=== PATIENT | female | born 1935 | race Caucasian/White ===

== ENCOUNTER 2017-04-18 12:53 | Day surgery (SDC) | payer OTHER ==
[~2017-04-18] VITALS: Ht 167.6 cm; Wt 73.0 kg
[~2017-04-18 12:53] MED LIST: ASPI-496 PO; ATEN1TAB4 PO; CEPH-367 PO; CLIN300C3 PO; DEXAMETHASONE 4 MG/ML, 1ML ONE; ENAL5TAB PO; EPHEDRINE 50 MG/ML, 1ML ONE; FISH1CAP PO; GLYCOPYRROLATE 0.2MG/1ML ONE; LACT1CAP4 PO; LUTE20TA PO; MIRA50TA PO; MULT-717 PO; NAPR220C2 PO; PROPOFOL 10 MG/ML, 20ML ONE
[2017-04-18 13:39] VITALS: BP 185/96
[2017-04-18] MEDS ORDERED: LACTATED RINGERS 1,000 ML IV SCH (13:43)
[2017-04-18] MEDS ORDERED: SULF1TAB24 PO (13:58)
[2017-04-18] MEDS ORDERED: NITR100C56 PO (13:58)
[2017-04-18] MEDS ORDERED: SOLI5TAB PO (13:58)
[2017-04-18] MEDS ORDERED: ENAL5TAB PO (13:58)
[2017-04-18] MEDS ORDERED: ATOR10TA9 PO (13:58)
[2017-04-18] MEDS ORDERED: PLEASE ENTER HEIGHT AND WEIGHT MC SCH (14:00)
[2017-04-18] MEDS ORDERED: CEFU250T66 PO (14:31)
[2017-04-18] MEDS ORDERED: UBID100C24 PO (14:37)
[2017-04-18] MEDS ORDERED: BETA2500 PO (14:37)
[2017-04-18] MEDS ORDERED: VIT1TABL32 PO (14:37)
[2017-04-18] MEDS ORDERED: ACET-1600 PO (14:37)
[2017-04-18] MEDS ORDERED: FENTANYL PF 100 MCG/2ML ONE (14:49)
[2017-04-18 15:46] LABS: BLOOD UREA NITROGEN 31 mg/dL (7-18)
[2017-04-18 15:50] LABS: ASPARTATE AMINO TRANSFERASE 24 U/L (15-37)
[2017-04-18] MEDS ORDERED: CIPROFLOXACIN/PMX 400MG/200ML 0 ML ONE (16:03)
[2017-04-18] MEDS ORDERED: CEFTRIAXONE 1,000 MG ONE (16:21)
[2017-04-18] MEDS ORDERED: HYDROmorphone 1 MG/ML, 1ML IV PRN (16:30)
[2017-04-18] MEDS ORDERED: PROMETHAZINE 25 MG/ML, 1ML IV PRN (16:30)
[2017-04-18] MEDS ORDERED: MEPERIDINE/PF 25MG/0.5ML IVPush PRN (16:30)
[2017-04-18] MEDS ORDERED: hydrALAzine 20 MG/ML, 1ML IV PRN (16:30)
[2017-04-18] MEDS ORDERED: ONDANSETRON 2MG/ML, 2ML IVPush PRN (16:30)
[2017-04-18] MEDS ORDERED: FENTANYL PF 100 MCG/2ML IV PRN (16:30)
[2017-04-18] MEDS ORDERED: KETOROLAC 30 MG/1 ML IV PRN (16:30)
[2017-04-18] MEDS ORDERED: ACETAMINOPHEN 325 MG TABLET PO PRN (16:30)
[2017-04-18] MEDS ORDERED: LABETALOL 5MG/ML, 20ML IV PRN (16:30)
[2017-04-18] MEDS ORDERED: OXYcodone 5 MG/5 ML ORAL.SOL UDC PO PRN (16:30)
[2017-04-18] MEDS ORDERED: OMNIPAQUE 350 MG/ML, 50 ML BOTTLE IV ONE (16:35)
[2017-04-18] MEDS ORDERED: KETOROLAC 30 MG/1 ML ONE (17:42)
[2017-04-18] MEDS ORDERED: OXYcodone 5 MG/5 ML ORAL.SOL UDC ONE (17:44)
[2017-04-18] MEDS ORDERED: ACETAMINOPHEN 650 MG/20.3 ML UDC ONE (17:44)
== END 2017-04-18 23:00 | disposition home or self-care (01) ==
LOC: OUT 12:53
PROVIDERS: ATTEND Urology
DX: N30.30 Trigonitis without hematuria (principal); I10 Essential (primary) hypertension; N32.81 Overactive bladder; Z88.3 Allergy status to other anti-infective agents; Z72.89 Other problems related to lifestyle; E78.00 Pure hypercholesterolemia, unspecified; M19.90 Unspecified osteoarthritis, unspecified site; Z87.440 Personal history of urinary (tract) infections; N17.9 Acute kidney failure, unspecified; N20.0 Calculus of kidney; Z82.3 Family history of stroke; Z80.3 Family history of malignant neoplasm of breast
CPT/HCPCS: 36415; 52005; 52204; 74420; 80053; 88305; 93005; J0696; J1100; J1885; J2704; J3010; Q9967; J0744; J3490

== ENCOUNTER 2018-01-16 10:56 | Inpatient (IN) | payer OTHER ==
[~2018-01-16] VITALS: Ht 165.1 cm; Wt 77.0 kg
[~2018-01-16 10:56] MED LIST changes: +ACET-1600 PO; +ATOR10TA9 PO; +BETA2500 PO; +CEFU250T66 PO; -DEXAMETHASONE 4 MG/ML, 1ML ONE; -EPHEDRINE 50 MG/ML, 1ML ONE; -GLYCOPYRROLATE 0.2MG/1ML ONE; +NITR100C56 PO; -PROPOFOL 10 MG/ML, 20ML ONE; +SOLI5TAB2 PO; +SULF1TAB24 PO; +UBID100C24 PO; +VIT1TABL32 PO
[2018-01-16] MEDS ORDERED: SODIUM CHLORIDE 0.9% 1,000 ML IV ONE (11:18)
[2018-01-16] MEDS ORDERED: SODIUM CHLORIDE FLUSH 10ML SYR IVF ONE (11:30)
[2018-01-16 11:46] LABS: MEAN CORPUSCULAR HEMOGLOBIN 31.2 pg (27.0-34.8); MEAN CORPUSCULAR HGB CONC 33.1 g/dL (32.4-35.8); MEAN CORPUSCULAR VOLUME 94.4 fL (80-100); MEAN PLATELET VOLUME 7.6 fL (7.4-10.4); PLATELET COUNT 239 x10^3/uL (130-400); RED CELL DISTRIBUTION WIDTH 15.6 % (9.6-15.2)
[2018-01-16 11:50] LABS: INTERNATIONAL NORMALIZED RATIO 1.06 (0.93-1.1)
[2018-01-16 11:55] LABS: ALBUMIN 2.8 g/dL (3.4-5.0); ANION GAP 8 mmol/L (5-15); CALCIUM 8.5 mg/dL (8.5-10.1); CHLORIDE 103 mmol/L (98-107); CREATININE 2.34 mg/dL (0.55-1.02)
[2018-01-16 11:59] LABS: TROPONIN I < 0.015 ng/mL (0.000-0.045)
[2018-01-16] MEDS ORDERED: PLEASE ENTER HEIGHT AND WEIGHT MC SCH (12:00)
[2018-01-16 12:13] LABS: MD YES
[2018-01-16 12:20] LABS: <PLATELET ESTIMATE> ADEQUATE; <PLT MORPHOLOGY> NORMAL PLT MORPH; <RBC MORPHOLOGY> NORMAL; BANDS%(MANUAL) 10 % (0-7); LYMPH#(MANUAL) 1.02 x10^3/uL (1-3.4); LYMPHS% (MANUAL) 6 % (22-44); MONOS#(MANUAL) 0.68 x10^3/uL (0.3-2.7); MONOS% (MANUAL) 4 % (2-9); SEGS% (MANUAL) 80 % (42-75)
[2018-01-16] MEDS ORDERED: GABA100C PO (13:02)
[2018-01-16] MEDS ORDERED: KRIL1CAP22 PO (13:03)
[2018-01-16 13:34] LABS: MICROSCOPIC INDICATED
[2018-01-16 13:38] LABS: CULTURE INDICATED? YES
[2018-01-16] MEDS ORDERED: CEFTRIAXONE PMX 1GM/50ML 50 ML IV ONE (14:00)
[2018-01-16] MEDS ORDERED: CEFTRIAXONE PMX 1GM/50ML 50 ML ONE (14:47)
[2018-01-16] MEDS ORDERED: ACETAMINOPHEN 325 MG TABLET PO PRN (16:30)
[2018-01-16] MEDS ORDERED: LABETALOL 5MG/ML, 20ML IVPush PRN (16:30)
[2018-01-16 17:30] VITALS: BP 105/47
[2018-01-16] MEDS ORDERED: HYDROmorphone 1 MG/ML, 1ML IV PRN (18:00)
[2018-01-16] MEDS ORDERED: ONDANSETRON 2MG/ML, 2ML IVPush PRN (18:00)
[2018-01-16] MEDS ORDERED: LABETALOL 5MG/ML, 20ML IV PRN (18:00)
[2018-01-16] MEDS ORDERED: hydrALAzine 20 MG/ML, 1ML IV PRN (18:00)
[2018-01-16] MEDS ORDERED: FENTANYL PF 100 MCG/2ML IV PRN (18:00)
[2018-01-16] MEDS ORDERED: OXYcodone 5 MG/5 ML ORAL.SOL UDC PO PRN (18:00)
[2018-01-16] MEDS ORDERED: PROMETHAZINE 25 MG/ML, 1ML IV PRN (18:00)
[2018-01-16] MEDS ORDERED: MEPERIDINE/PF 25MG/0.5ML IVPush PRN (18:00)
[2018-01-16] MEDS ORDERED: PROMETHAZINE 12.5 MG SUPP PR PRN (18:00)
[2018-01-16] MEDS ORDERED: FENTANYL PF 250 MCG/5ML ONE (18:02)
[2018-01-16] MEDS ORDERED: PROPOFOL 10 MG/ML, 20ML ONE (18:02)
[2018-01-16] MEDS ORDERED: DEXAMETHASONE 4 MG/ML, 1ML ONE ×2 (18:03)
[2018-01-16] MEDS ORDERED: ONDANSETRON 2MG/ML, 2ML ONE (18:57)
[2018-01-16] MEDS ORDERED: PHENYLEPHRINE 10 MG/ML ONE (18:57)
[2018-01-16 20:43] VITALS: BP 140/84
[2018-01-16] MEDS: GABAPENTIN 100 MG CAPSULE PO SCH (21:00)
[2018-01-16 23:59] VITALS: BP 85/42
[2018-01-17] MEDS: SODIUM CHLORIDE 0.9% 1,000 ML IV SCH ×3 (00:26→23:56)
[2018-01-17 04:22] VITALS: BP 94/45
[2018-01-17] MEDS ORDERED: SODIUM CHLORIDE 0.9%, 500ML IVBOLUS ONE ×2 (05:00→11:00)
[2018-01-17 05:21] LABS: ANION GAP 7 mmol/L (5-15); CHLORIDE 106 mmol/L (98-107); CREATININE 2.61 mg/dL (0.55-1.02)
[2018-01-17 05:50] LABS: BASOPHILS % (AUTO) 0 % (0-1); EOSINOPHILS % (AUTO) 0 % (1-7); LYMPHOCYTES # (AUTO) 0.62 x10^3/uL (1-3.4); LYMPHOCYTES % (AUTO) 4 % (22-44); MD NO; MEAN CORPUSCULAR HEMOGLOBIN 31.5 pg (27.0-34.8); MEAN CORPUSCULAR HGB CONC 33.3 g/dL (32.4-35.8); MEAN CORPUSCULAR VOLUME 94.6 fL (80-100); MEAN PLATELET VOLUME 8.3 fL (7.4-10.4); MONOCYTES # (AUTO) 0.42 x10^3/uL (0.2-0.8); MONOCYTES % (AUTO) 3 % (2-9); NEUTROPHILS # (AUTO) 16.01 x10^3/uL (1.8-6.8); NEUTROPHILS % (AUTO) 94 % (42-75); PLATELET COUNT 191 x10^3/uL (130-400); RED BLOOD COUNT 2.66 x10^6/uL (3.82-5.3); RED CELL DISTRIBUTION WIDTH 15.5 % (9.6-15.2)
[2018-01-17 07:29] VITALS: BP 91/53
[2018-01-17 13:12] VITALS: BP 94/54
[2018-01-17 18:52] VITALS: BP 132/69
[2018-01-17] MEDS: GABAPENTIN 100 MG CAPSULE PO SCH (20:16)
[2018-01-18 00:56] VITALS: BP 102/59
[2018-01-18 04:54] LABS: MEAN CORPUSCULAR HEMOGLOBIN 31.2 pg (27.0-34.8); MEAN CORPUSCULAR VOLUME 94.6 fL (80-100); MEAN PLATELET VOLUME 8.1 fL (7.4-10.4); PLATELET COUNT 198 x10^3/uL (130-400); RED BLOOD COUNT 2.61 x10^6/uL (3.82-5.3); RED CELL DISTRIBUTION WIDTH 15.6 % (9.6-15.2)
[2018-01-18 05:02] LABS: ANION GAP 8 mmol/L (5-15); CALCIUM 8.2 mg/dL (8.5-10.1); CHLORIDE 106 mmol/L (98-107); CREATININE 2.38 mg/dL (0.55-1.02)
[2018-01-18 06:09] LABS: BASOPHILS # (AUTO) 0.01 x10^3/uL (0-0.1); BASOPHILS % (AUTO) 0 % (0-1); EOSINOPHILS # (AUTO) 0.02 x10^3/uL (0-0.4); EOSINOPHILS % (AUTO) 0 % (1-7); LYMPHOCYTES # (AUTO) 0.92 x10^3/uL (1-3.4); LYMPHOCYTES % (AUTO) 5 % (22-44); MD SCAN; MONOCYTES # (AUTO) 0.97 x10^3/uL (0.2-0.8); MONOCYTES % (AUTO) 5 % (2-9); NEUTROPHILS % (AUTO) 90 % (42-75)
[2018-01-18] MEDS ORDERED: CEFTRIAXONE PMX 2GM/50ML 50 ML IV SCH (07:00)
[2018-01-18 07:43] VITALS: BP 119/66
[2018-01-18] MEDS: FERROUS SULFATE 325 MG TABLET PO SCH (08:33)
[2018-01-18] MEDS: SODIUM CHLORIDE 0.9% 1,000 ML IV SCH (11:41)
[2018-01-18 13:26] VITALS: BP 120/64
[2018-01-18] MEDS ORDERED: FUROSEMIDE 100 MG/10 ML IV ONE (14:38)
[2018-01-18] MEDS ORDERED: FUROSEMIDE 40 MG/4 ML ONE (14:51)
[2018-01-18 14:59] LABS: BASOPHILS % (AUTO) 0 % (0-1); EOSINOPHILS # (AUTO) 0.02 x10^3/uL (0-0.4); EOSINOPHILS % (AUTO) 0 % (1-7); LYMPHOCYTES % (AUTO) 5 % (22-44); MD NO; MEAN CORPUSCULAR HEMOGLOBIN 30.6 pg (27.0-34.8); MEAN CORPUSCULAR HGB CONC 32.8 g/dL (32.4-35.8); MEAN CORPUSCULAR VOLUME 93.5 fL (80-100); MEAN PLATELET VOLUME 7.6 fL (7.4-10.4); MONOCYTES # (AUTO) 1.09 x10^3/uL (0.2-0.8); MONOCYTES % (AUTO) 7 % (2-9); NEUTROPHILS % (AUTO) 88 % (42-75); PLATELET COUNT 215 x10^3/uL (130-400); RED BLOOD COUNT 2.68 x10^6/uL (3.82-5.3); RED CELL DISTRIBUTION WIDTH 15.4 % (9.6-15.2)
[2018-01-18 15:05] LABS: ALANINE AMINOTRANSFERASE 22 U/L (12-78); ALBUMIN 2.6 g/dL (3.4-5.0); ANION GAP 9 mmol/L (5-15); CHLORIDE 104 mmol/L (98-107); CREATININE 2.24 mg/dL (0.55-1.02)
[2018-01-18 15:08] VITALS: BP 138/61
[2018-01-18 15:09] LABS: ALKALINE PHOSPHATASE 55 U/L (45-117); BILIRUBIN,TOTAL 0.2 mg/dL (0.2-1.0); TOTAL PROTEIN 6.5 g/dL (6.4-8.2); TROPONIN I < 0.015 ng/mL (0.000-0.045)
[2018-01-18 19:19] VITALS: BP 113/63
[2018-01-18] MEDS: GABAPENTIN 100 MG CAPSULE PO SCH (19:50)
[2018-01-18 20:22] LABS: TROPONIN I < 0.015 ng/mL (0.000-0.045)
[2018-01-19 00:24] VITALS: BP 137/69
[2018-01-19 05:05] LABS: BASOPHILS # (AUTO) 0.03 x10^3/uL (0-0.1); BASOPHILS % (AUTO) 0 % (0-1); EOSINOPHILS # (AUTO) 0.11 x10^3/uL (0-0.4); EOSINOPHILS % (AUTO) 1 % (1-7); LYMPHOCYTES # (AUTO) 0.85 x10^3/uL (1-3.4); LYMPHOCYTES % (AUTO) 8 % (22-44); MD NO; MEAN CORPUSCULAR HEMOGLOBIN 31.1 pg (27.0-34.8); MEAN CORPUSCULAR HGB CONC 33.4 g/dL (32.4-35.8); MEAN CORPUSCULAR VOLUME 93.2 fL (80-100); MONOCYTES # (AUTO) 1.25 x10^3/uL (0.2-0.8); MONOCYTES % (AUTO) 11 % (2-9); NEUTROPHILS # (AUTO) 8.75 x10^3/uL (1.8-6.8); NEUTROPHILS % (AUTO) 80 % (42-75); PLATELET COUNT 207 x10^3/uL (130-400); RED BLOOD COUNT 2.56 x10^6/uL (3.82-5.3); RED CELL DISTRIBUTION WIDTH 15.2 % (9.6-15.2)
[2018-01-19 05:17] LABS: ANION GAP 8 mmol/L (5-15); CHLORIDE 102 mmol/L (98-107)
[2018-01-19 05:18] LABS: CREATININE 2.06 mg/dL (0.55-1.02)
[2018-01-19 07:48] VITALS: BP 90/53
[2018-01-19] MEDS ORDERED: CEFTRIAXONE 2,000 MG in SODIUM CHLORIDE 0.9% 50 ML IV SCH (08:00)
[2018-01-19] MEDS: ATENOLOL 50 MG TABLET PO SCH (08:20)
[2018-01-19] MEDS: FERROUS SULFATE 325 MG TABLET PO SCH (08:20)
[2018-01-19] MEDS: CHLORTHALIDONE 25 MG TABLET PO SCH (08:20)
[2018-01-19] MEDS: POTASSIUM CHLORIDE 20 MEQ PACKET PO SCH ×3 (08:28→16:53)
[2018-01-19] MEDS: DOCUSATE 100 MG CAPSULE PO SCH (08:28)
[2018-01-19] MEDS ORDERED: BISACODYL 10 MG SUPP PR PRN (08:30)
[2018-01-19] MEDS ORDERED: LACTULOSE 20 GM/30 ML UDC PO PRN (08:30)
[2018-01-19] MEDS: SULFAMETH./TRIMETHOPRIM DS 800MG/160MG TABLET PO SCH ×2 (09:41→20:46)
[2018-01-19 13:53] VITALS: BP 107/62
[2018-01-19 19:45] VITALS: BP 100/57
[2018-01-19] MEDS: GABAPENTIN 100 MG CAPSULE PO SCH (20:45)
[2018-01-20 01:26] VITALS: BP 130/67
[2018-01-20 05:12] LABS: BASOPHILS # (AUTO) 0.08 x10^3/uL (0-0.1); BASOPHILS % (AUTO) 1 % (0-1); EOSINOPHILS # (AUTO) 0.32 x10^3/uL (0-0.4); EOSINOPHILS % (AUTO) 3 % (1-7); LYMPHOCYTES # (AUTO) 1.26 x10^3/uL (1-3.4); LYMPHOCYTES % (AUTO) 12 % (22-44); MD NO; MEAN CORPUSCULAR HEMOGLOBIN 31.4 pg (27.0-34.8); MEAN CORPUSCULAR HGB CONC 33.3 g/dL (32.4-35.8); MEAN CORPUSCULAR VOLUME 94.1 fL (80-100); MEAN PLATELET VOLUME 8.1 fL (7.4-10.4); MONOCYTES # (AUTO) 1.35 x10^3/uL (0.2-0.8); MONOCYTES % (AUTO) 13 % (2-9); NEUTROPHILS # (AUTO) 7.59 x10^3/uL (1.8-6.8); NEUTROPHILS % (AUTO) 72 % (42-75); PLATELET COUNT 203 x10^3/uL (130-400); RED BLOOD COUNT 2.58 x10^6/uL (3.82-5.3); RED CELL DISTRIBUTION WIDTH 15.3 % (9.6-15.2)
[2018-01-20 05:24] LABS: ANION GAP 7 mmol/L (5-15); CALCIUM 8.3 mg/dL (8.5-10.1); CHLORIDE 103 mmol/L (98-107)
[2018-01-20 05:25] LABS: CREATININE 2.03 mg/dL (0.55-1.02)
[2018-01-20] MEDS ORDERED: POTASSIUM CHLORIDE 20 MEQ TAB.ER.PRT PO ONE (06:30)
[2018-01-20 07:11] VITALS: BP 124/58
[2018-01-20 08:15] VITALS: BP 104/52
[2018-01-20] MEDS: POTASSIUM CHLORIDE 20 MEQ PACKET PO SCH ×2 (08:34→12:03)
[2018-01-20] MEDS: FERROUS SULFATE 325 MG TABLET PO SCH (08:34)
[2018-01-20] MEDS: ATENOLOL 50 MG TABLET PO SCH (08:34)
[2018-01-20] MEDS: SULFAMETH./TRIMETHOPRIM DS 800MG/160MG TABLET PO SCH (08:34)
[2018-01-20] MEDS: CHLORTHALIDONE 25 MG TABLET PO SCH (08:34)
[2018-01-20] MEDS: DOCUSATE 100 MG CAPSULE PO SCH (08:35)
[2018-01-20] MEDS ORDERED: SULF-169 PO (13:14)
[2018-01-20] MEDS ORDERED: DOCU-131 PO (13:14)
[2018-01-20] MEDS ORDERED: FERR-51 PO (13:14)
[2018-01-20 13:23] VITALS: BP 132/63
== END 2018-01-20 14:58 | disposition home or self-care (01) | DRG 853 ==
LOC: ED 14:09 → EDIP 14:14 → ED 14:50 → 4NOR 15:53 → DCLOUNGE 01-20 14:50
PROVIDERS: ADMIT Family Medicine; ATTEND Family Medicine
PROC: 0T5B8ZZ Destruction of Bladder, Via Natural or Artificial Opening Endoscopic (ICD-10-PCS; 2018-01-16)
PROC: 0T9B70Z Drainage of Bladder with Drainage Device, Via Natural or Artificial Opening (ICD-10-PCS; 2018-01-16)
PROC: 0TCB8ZZ Extirpation of Matter from Bladder, Via Natural or Artificial Opening Endoscopic (ICD-10-PCS; principal; 2018-01-16 17:00)
DX: A41.9 Sepsis, unspecified organism (principal); E43 Unspecified severe protein-calorie malnutrition; I95.9 Hypotension, unspecified; D62 Acute posthemorrhagic anemia; N30.01 Acute cystitis with hematuria; I73.9 Peripheral vascular disease, unspecified; I10 Essential (primary) hypertension; I25.10 Atherosclerotic heart disease of native coronary artery without angina pectoris; K59.00 Constipation, unspecified; D72.829 Elevated white blood cell count, unspecified; Z66 Do not resuscitate; N39.41 Urge incontinence; Z82.3 Family history of stroke
CPT/HCPCS: 36415; 51702; 71045; 80048; 80053; 81001; 82040; 84484; 85025; 85610; 85730; 87077; 87086; 87186; 93005; 93306; 96360; J0696; J1100; J1940; J2405; J2704; J3010; J2370; J7030; J7040

== ENCOUNTER → 2019-01-01 | Outpatient (CLI) | payer MEDICARE ==
[~2019-01-01] MED LIST changes: +DOCU-131 PO; +FERR-51 PO; +GABA100C PO; +KRIL1CAP22 PO; +SULF-169 PO
== END | disposition home or self-care (01) ==
LOC: CFH 10:25
PROVIDERS: ATTEND Internal Medicine Nephrology
DX: N13.30 Unspecified hydronephrosis (principal); N32.89 Other specified disorders of bladder; I12.9 Hypertensive chronic kidney disease with stage 1 through stage 4 chronic kidney disease, or unspecified chronic kidney disease; N18.4 Chronic kidney disease, stage 4 (severe)
CPT/HCPCS: 76770

== ENCOUNTER 2019-02-04 09:11 | Inpatient (IN) | payer MEDICARE ==
[~2019-02-04] VITALS: Ht 166.4 cm; Wt 65.7 kg
[2019-02-04] MEDS ORDERED: SODIUM CHLORIDE 0.9% 1,000 ML IV ONE (09:19)
[2019-02-04] MEDS ORDERED: SODIUM CHLORIDE FLUSH 10ML SYR IVF ONE (09:30)
[2019-02-04] MEDS ORDERED: PLEASE ENTER HEIGHT AND WEIGHT MC SCH (09:30)
[2019-02-04 09:48] LABS: BASOPHILS # (AUTO) 0.01 x10^3/uL (0-0.1); BASOPHILS % (AUTO) 0 % (0-1); EOSINOPHILS # (AUTO) 0.01 x10^3/uL (0-0.4); EOSINOPHILS % (AUTO) 0 % (1-7); LYMPHOCYTES # (AUTO) 1.29 x10^3/uL (1-3.4); LYMPHOCYTES % (AUTO) 14 % (22-44); MD NO; MEAN CORPUSCULAR HEMOGLOBIN 31.9 pg (27.0-34.8); MEAN CORPUSCULAR HGB CONC 33.5 g/dL (32.4-35.8); MEAN CORPUSCULAR VOLUME 95.3 fL (80-100); MEAN PLATELET VOLUME 7.2 fL (7.4-10.4); MONOCYTES # (AUTO) 1.34 x10^3/uL (0.2-0.8); MONOCYTES % (AUTO) 14 % (2-9); NEUTROPHILS # (AUTO) 6.91 x10^3/uL (1.8-6.8); NEUTROPHILS % (AUTO) 72 % (42-75); PLATELET COUNT 393 x10^3/uL (130-400); RED BLOOD COUNT 4.19 x10^6/uL (3.82-5.3); RED CELL DISTRIBUTION WIDTH 15.8 % (9.6-15.2)
[2019-02-04 09:59] LABS: INTERNATIONAL NORMALIZED RATIO 0.95 (0.93-1.1)
[2019-02-04 10:00] LABS: ALANINE AMINOTRANSFERASE 15 U/L (12-78); ALBUMIN 3.4 g/dL (3.4-5.0); ANION GAP 8 mmol/L (5-15); CHLORIDE 101 mmol/L (98-107)
[2019-02-04 10:02] LABS: ALKALINE PHOSPHATASE 89 U/L (45-117); BILIRUBIN,TOTAL 0.3 mg/dL (0.2-1.0); TOTAL PROTEIN 9.1 g/dL (6.4-8.2)
[2019-02-04] MEDS ORDERED: CETI10TA24 PO (10:18)
[2019-02-04 10:27] LABS: MICROSCOPIC INDICATED
[2019-02-04 10:35] LABS: CULTURE INDICATED? YES
[2019-02-04] MEDS ORDERED: CEFTRIAXONE PMX 1GM/50ML 50 ML IVPB ONE (11:00)
[2019-02-04] MEDS ORDERED: CEFTRIAXONE PMX 1GM/50ML 50 ML ONE (11:13)
--- NOTE | 2019-02-04 11:59 | NUR ---
[facility] TELEPHONE HAND-OFF REPORT GIVEN TO FLOOR RN.
[2019-02-04] MEDS ORDERED: SODIUM CHLORIDE FLUSH 10ML SYR IVF PRN (12:00)
[2019-02-04] MEDS ORDERED: NS + 20MEQ KCL 1,000 ML IV SCH (12:13)
[2019-02-04] MEDS ORDERED: POLYETHYLENE GLYCOL 17 GM PACKET PO PRN (12:30)
[2019-02-04] MEDS ORDERED: BISACODYL 10 MG SUPP PR PRN (12:30)
[2019-02-04] MEDS ORDERED: ONDANSETRON ODT 4 MG PO PRN (12:30)
[2019-02-04] MEDS ORDERED: ACETAMINOPHEN 325 MG TABLET PO PRN (12:30)
[2019-02-04 12:57] VITALS: BP 122/68
[2019-02-04 12:59] VITALS: BP 122/68
[2019-02-04] MEDS: HEPARIN 5,000 UNITS/ML, 1ML SQ SCH ×2 (15:02→20:38)
[2019-02-04] MEDS: SODIUM CHLORIDE 0.9% 1,000 ML IV SCH (17:51)
[2019-02-04] MEDS ORDERED: HYDROcodone/APAP 5/325 TABLET PO ONE (20:30)
[2019-02-04] MEDS: LACTULOSE 10 GM/15 ML UDC PO SCH (20:39)
[2019-02-05 02:49] VITALS: BP 134/69
[2019-02-05] MEDS: SODIUM CHLORIDE 0.9% 1,000 ML IV SCH ×2 (03:14→12:18)
[2019-02-05 05:26] LABS: BASOPHILS # (AUTO) 0.04 x10^3/uL (0-0.1); BASOPHILS % (AUTO) 0 % (0-1); EOSINOPHILS # (AUTO) 0.04 x10^3/uL (0-0.4); EOSINOPHILS % (AUTO) 0 % (1-7); LYMPHOCYTES # (AUTO) 1.61 x10^3/uL (1-3.4); LYMPHOCYTES % (AUTO) 12 % (22-44); MD NO; MEAN CORPUSCULAR HEMOGLOBIN 32.7 pg (27.0-34.8); MEAN CORPUSCULAR HGB CONC 33.9 g/dL (32.4-35.8); MEAN CORPUSCULAR VOLUME 96.2 fL (80-100); MEAN PLATELET VOLUME 7.7 fL (7.4-10.4); MONOCYTES # (AUTO) 1.43 x10^3/uL (0.2-0.8); MONOCYTES % (AUTO) 10 % (2-9); NEUTROPHILS # (AUTO) 10.69 x10^3/uL (1.8-6.8); NEUTROPHILS % (AUTO) 77 % (42-75); PLATELET COUNT 354 x10^3/uL (130-400); RED BLOOD COUNT 3.67 x10^6/uL (3.82-5.3); RED CELL DISTRIBUTION WIDTH 15.7 % (9.6-15.2)
[2019-02-05 05:35] LABS: ANION GAP 7 mmol/L (5-15); CALCIUM 9.6 mg/dL (8.5-10.1); CHLORIDE 109 mmol/L (98-107); CREATININE 2.23 mg/dL (0.55-1.02)
[2019-02-05] MEDS: HEPARIN 5,000 UNITS/ML, 1ML SQ SCH ×3 (05:59→19:50)
[2019-02-05 06:47] VITALS: BP 130/70
[2019-02-05] MEDS: ASPIRIN 81 MG TABLET EC PO SCH (08:10)
[2019-02-05] MEDS: CETIRIZINE 10 MG TABLET PO SCH (08:10)
[2019-02-05] MEDS: LACTULOSE 10 GM/15 ML UDC PO SCH ×2 (08:10→19:51)
[2019-02-05] MEDS: CEFTRIAXONE PMX 1GM/50ML 50 ML IV SCH (12:18)
[2019-02-05 12:46] VITALS: BP 141/83
[2019-02-05 18:52] VITALS: BP 127/68
[2019-02-06 00:38] VITALS: BP 117/62
[2019-02-06] MEDS: HEPARIN 5,000 UNITS/ML, 1ML SQ SCH ×3 (03:53→20:24)
[2019-02-06] MEDS: SODIUM CHLORIDE 0.9% 1,000 ML IV SCH ×3 (03:53→20:24)
[2019-02-06 06:19] LABS: BASOPHILS # (AUTO) 0.06 x10^3/uL (0-0.1); BASOPHILS % (AUTO) 1 % (0-1); EOSINOPHILS # (AUTO) 0.14 x10^3/uL (0-0.4); EOSINOPHILS % (AUTO) 1 % (1-7); LYMPHOCYTES # (AUTO) 1.95 x10^3/uL (1-3.4); LYMPHOCYTES % (AUTO) 19 % (22-44); MD NO; MEAN CORPUSCULAR HEMOGLOBIN 31.9 pg (27.0-34.8); MEAN CORPUSCULAR HGB CONC 33.4 g/dL (32.4-35.8); MEAN CORPUSCULAR VOLUME 95.5 fL (80-100); MONOCYTES # (AUTO) 1.22 x10^3/uL (0.2-0.8); MONOCYTES % (AUTO) 12 % (2-9); NEUTROPHILS # (AUTO) 7.16 x10^3/uL (1.8-6.8); NEUTROPHILS % (AUTO) 68 % (42-75); PLATELET COUNT 291 x10^3/uL (130-400); RED BLOOD COUNT 3.13 x10^6/uL (3.82-5.3); RED CELL DISTRIBUTION WIDTH 16.6 % (9.6-15.2)
[2019-02-06 06:27] VITALS: BP 116/63
[2019-02-06 06:30] LABS: ANION GAP 7 mmol/L (5-15); CALCIUM 8.7 mg/dL (8.5-10.1); CHLORIDE 110 mmol/L (98-107); CREATININE 1.81 mg/dL (0.55-1.02)
[2019-02-06] MEDS ORDERED: LACTULOSE 10 GM/15 ML UDC PO PRN (07:00)
[2019-02-06] MEDS ORDERED: POTASSIUM CHLORIDE 20 MEQ TAB.ER.PRT PO ONE (07:00)
[2019-02-06] MEDS: ASPIRIN 81 MG TABLET EC PO SCH (08:14)
[2019-02-06] MEDS: CETIRIZINE 10 MG TABLET PO SCH (08:14)
[2019-02-06] MEDS: FERROUS SULFATE 325 MG TABLET PO SCH (08:14)
[2019-02-06 12:03] VITALS: BP 122/66
[2019-02-06] MEDS: CEFTRIAXONE PMX 1GM/50ML 50 ML IV SCH (12:05)
[2019-02-06] MEDS ORDERED: SULF1TAB24 PO (12:59)
[2019-02-06] MEDS ORDERED: POLY17PO5 PO (12:59)
[2019-02-06 18:30] VITALS: BP 125/65
[2019-02-07 01:55] VITALS: BP 118/81
[2019-02-07] MEDS: HEPARIN 5,000 UNITS/ML, 1ML SQ SCH ×2 (04:07→13:49)
[2019-02-07 07:12] VITALS: BP 112/64
[2019-02-07] MEDS: FERROUS SULFATE 325 MG TABLET PO SCH (08:02)
[2019-02-07] MEDS: ASPIRIN 81 MG TABLET EC PO SCH (08:03)
[2019-02-07] MEDS: CETIRIZINE 10 MG TABLET PO SCH (08:03)
[2019-02-07] MEDS ORDERED: SULFAMETH./TRIMETHOPRIM DS 800MG/160MG TABLET PO SCH (09:00)
[2019-02-07 12:01] LABS: ANION GAP 7 mmol/L (5-15); CALCIUM 9.3 mg/dL (8.5-10.1); CHLORIDE 109 mmol/L (98-107)
[2019-02-07 12:03] LABS: BASOPHILS # (AUTO) 0.06 x10^3/uL (0-0.1); BASOPHILS % (AUTO) 1 % (0-1); EOSINOPHILS # (AUTO) 0.18 x10^3/uL (0-0.4); EOSINOPHILS % (AUTO) 2 % (1-7); HEMOGRAM NOTE RECHECKED; LYMPHOCYTES # (AUTO) 1.67 x10^3/uL (1-3.4); LYMPHOCYTES % (AUTO) 18 % (22-44); MD NO; MEAN CORPUSCULAR HEMOGLOBIN 31.6 pg (27.0-34.8); MEAN CORPUSCULAR HGB CONC 32.9 g/dL (32.4-35.8); MEAN CORPUSCULAR VOLUME 96.2 fL (80-100); MEAN PLATELET VOLUME 7.4 fL (7.4-10.4); MONOCYTES % (AUTO) 8 % (2-9); NEUTROPHILS # (AUTO) 6.79 x10^3/uL (1.8-6.8); NEUTROPHILS % (AUTO) 72 % (42-75); PLATELET COUNT 358 x10^3/uL (130-400); RED BLOOD COUNT 3.58 x10^6/uL (3.82-5.3); RED CELL DISTRIBUTION WIDTH 16.5 % (9.6-15.2)
[2019-02-07 13:45] VITALS: BP 138/72
[2019-02-07] MEDS ORDERED: SULF1TAB24 PO (13:50)
== END 2019-02-07 16:10 | disposition home health service (06) | DRG 690 ==
LOC: ED 10:36 → EDIP 11:39 → 3NE 12:01
PROVIDERS: ADMIT Family Medicine; ATTEND Family Medicine
DX: N13.6 Pyonephrosis (principal); N17.0 Acute kidney failure with tubular necrosis; N18.4 Chronic kidney disease, stage 4 (severe); I12.9 Hypertensive chronic kidney disease with stage 1 through stage 4 chronic kidney disease, or unspecified chronic kidney disease; R62.7 Adult failure to thrive; E87.6 Hypokalemia; I73.9 Peripheral vascular disease, unspecified; K59.00 Constipation, unspecified; N32.81 Overactive bladder; M51.36 Other intervertebral disc degeneration, lumbar region; Z66 Do not resuscitate; Z79.82 Long term (current) use of aspirin; Z80.3 Family history of malignant neoplasm of breast; Z82.3 Family history of stroke
CPT/HCPCS: 36415; 71045; 74176; 80048; 80053; 81001; 82274; 82728; 83540; 83550; 83605; 84443; 85025; 85610; 85730; 87040; 87077; 87086; 87186; 93005; 96361; 96365; 96366; G0378; J0696; J1644; J3480; Q0162; J7030

== ENCOUNTER 2019-06-13 23:48 | Inpatient (IN) | payer MEDICARE ==
[~2019-06-13] VITALS: Ht 165.1 cm; Wt 67.7 kg
[~2019-06-13 23:48] MED LIST changes: +CETI10TA24 PO; +POLY17PO5 PO
[2019-06-14] MEDS ORDERED: SODIUM CHLORIDE 0.9% 1,000ML IVBOLUS ONE
[2019-06-14] MEDS ORDERED: SODIUM CHLORIDE FLUSH 10ML SYR IVF ONE
[2019-06-14] MEDS ORDERED: ACETAMINOPHEN 500 MG TABLET ONE (00:10)
[2019-06-14 00:29] LABS: BASOPHILS % (AUTO) 0 % (0-1); EOSINOPHILS # (AUTO) 0.07 x10^3/uL (0-0.4); EOSINOPHILS % (AUTO) 1 % (1-7); LYMPHOCYTES # (AUTO) 0.67 x10^3/uL (1-3.4); LYMPHOCYTES % (AUTO) 5 % (22-44); MD NO; MEAN CORPUSCULAR HEMOGLOBIN 30.6 pg (27.0-34.8); MEAN CORPUSCULAR HGB CONC 32.2 g/dL (32.4-35.8); MEAN CORPUSCULAR VOLUME 95.2 fL (80-100); MEAN PLATELET VOLUME 6.8 fL (7.4-10.4); MONOCYTES # (AUTO) 1.09 x10^3/uL (0.2-0.8); MONOCYTES % (AUTO) 9 % (2-9); NEUTROPHILS # (AUTO) 10.58 x10^3/uL (1.8-6.8); NEUTROPHILS % (AUTO) 85 % (42-75); PLATELET COUNT 392 x10^3/uL (130-400); RED BLOOD COUNT 3.47 x10^6/uL (3.82-5.3); RED CELL DISTRIBUTION WIDTH 13.5 % (9.6-15.2)
[2019-06-14] MEDS ORDERED: ACETAMINOPHEN 500 MG TABLET PO ONE (00:30)
[2019-06-14 00:42] LABS: ALANINE AMINOTRANSFERASE 13 U/L (12-78); ALBUMIN 3.1 g/dL (3.4-5.0); ANION GAP 10 mmol/L (5-15); CALCIUM 9.8 mg/dL (8.5-10.1); CHLORIDE 106 mmol/L (98-107); CREATININE 2.01 mg/dL (0.55-1.02)
[2019-06-14 00:47] LABS: CULTURE INDICATED? YES; MICROSCOPIC INDICATED
[2019-06-14 00:47] LABS: ALKALINE PHOSPHATASE 85 U/L (45-117); BILIRUBIN,TOTAL 0.3 mg/dL (0.2-1.0); FREE T4 (FREE THYROXINE) 1.06 ng/dL (0.76-1.46); TROPONIN I < 0.015 ng/mL (0.000-0.045)
[2019-06-14] MEDS ORDERED: CEFTRIAXONE PMX 1GM/50ML 50 ML ONE (00:59)
[2019-06-14] MEDS ORDERED: CEFTRIAXONE PMX 1GM/50ML 50 ML IV ONE (01:00)
--- NOTE | 2019-06-14 01:17 | NUR ---
PT CLEANED AND PLACED ON NEW CHUX PAD. PUREWICK INSERTED. PT A&OX4, COOPERATIVE. AT BEDSIDE. PT UPDATED ON POC. NO FURTHER NEEDS AT THIS TIME.
--- NOTE | 2019-06-14 01:28 | NUR ---
pt reports no medications, states she just takes some vitamins.
[2019-06-14] MEDS ORDERED: ONDANSETRON ODT 4 MG PO PRN (02:00)
[2019-06-14] MEDS: LACTATED RINGERS 1,000 ML IV SCH ×2 (02:32→07:00)
[2019-06-14 02:41] VITALS: BP 121/70
[2019-06-14 05:30] LABS: BASOPHILS # (AUTO) 0.05 x10^3/uL (0-0.1); BASOPHILS % (AUTO) 1 % (0-1); EOSINOPHILS # (AUTO) 0.02 x10^3/uL (0-0.4); EOSINOPHILS % (AUTO) 0 % (1-7); LYMPHOCYTES # (AUTO) 1.19 x10^3/uL (1-3.4); LYMPHOCYTES % (AUTO) 13 % (22-44); MD NO; MEAN CORPUSCULAR HEMOGLOBIN 31.8 pg (27.0-34.8); MEAN CORPUSCULAR HGB CONC 32.6 g/dL (32.4-35.8); MEAN CORPUSCULAR VOLUME 97.5 fL (80-100); MEAN PLATELET VOLUME 7.6 fL (7.4-10.4); MONOCYTES % (AUTO) 10 % (2-9); NEUTROPHILS # (AUTO) 7.13 x10^3/uL (1.8-6.8); NEUTROPHILS % (AUTO) 77 % (42-75); PLATELET COUNT 345 x10^3/uL (130-400)
[2019-06-14 05:37] LABS: CHLORIDE 109 mmol/L (98-107)
[2019-06-14 05:42] LABS: ANION GAP 7 mmol/L (5-15); CALCIUM 9.4 mg/dL (8.5-10.1); CREATININE 1.88 mg/dL (0.55-1.02)
[2019-06-14 07:43] VITALS: BP 122/73
[2019-06-14] MEDS: HEPARIN 5,000 UNITS/ML, 1ML SQ SCH ×2 (08:17→16:10)
[2019-06-14 13:48] VITALS: BP 131/70
[2019-06-14 19:51] VITALS: BP 115/64
[2019-06-14] MEDS: ACETAMINOPHEN 325 MG TABLET PO PRN (23:15)
[2019-06-15] MEDS: HEPARIN 5,000 UNITS/ML, 1ML SQ SCH ×3 (00:25→16:44)
[2019-06-15] MEDS: CEFTRIAXONE PMX 1GM/50ML 50 ML IV SCH (00:28)
[2019-06-15 01:30] VITALS: BP 111/67
[2019-06-15 04:38] LABS: MEAN CORPUSCULAR HEMOGLOBIN 31.6 pg (27.0-34.8); MEAN CORPUSCULAR HGB CONC 32.6 g/dL (32.4-35.8); MEAN CORPUSCULAR VOLUME 96.9 fL (80-100); MEAN PLATELET VOLUME 7.8 fL (7.4-10.4); PLATELET COUNT 357 x10^3/uL (130-400); RED CELL DISTRIBUTION WIDTH 14.1 % (9.6-15.2)
[2019-06-15 04:45] LABS: ANION GAP 10 mmol/L (5-15); CALCIUM 9.1 mg/dL (8.5-10.1); CHLORIDE 106 mmol/L (98-107); CREATININE 2.02 mg/dL (0.55-1.02)
[2019-06-15 05:42] LABS: BASOPHILS # (AUTO) 0.15 x10^3/uL (0-0.1); BASOPHILS % (AUTO) 1 % (0-1); EOSINOPHILS # (AUTO) 0.02 x10^3/uL (0-0.4); EOSINOPHILS % (AUTO) 0 % (1-7); LYMPHOCYTES # (AUTO) 1.81 x10^3/uL (1-3.4); LYMPHOCYTES % (AUTO) 13 % (22-44); MD SCAN; MONOCYTES # (AUTO) 1.29 x10^3/uL (0.2-0.8); MONOCYTES % (AUTO) 9 % (2-9); NEUTROPHILS # (AUTO) 10.66 x10^3/uL (1.8-6.8); NEUTROPHILS % (AUTO) 77 % (42-75)
[2019-06-15 08:17] VITALS: BP 125/76
[2019-06-15] MEDS: POLYETHYLENE GLYCOL 17 GM PACKET NG SCH (08:51)
[2019-06-15 14:00] VITALS: BP 145/78
[2019-06-15 19:48] VITALS: BP 133/70
[2019-06-16] MEDS: HEPARIN 5,000 UNITS/ML, 1ML SQ SCH ×3 (00:52→18:07)
[2019-06-16] MEDS: CEFTRIAXONE PMX 1GM/50ML 50 ML IV SCH (00:52)
[2019-06-16 01:22] VITALS: BP 128/64
[2019-06-16] MEDS: ACETAMINOPHEN 325 MG TABLET PO PRN (03:50)
[2019-06-16 05:31] LABS: BASOPHILS # (AUTO) 0.09 x10^3/uL (0-0.1); BASOPHILS % (AUTO) 1 % (0-1); EOSINOPHILS # (AUTO) 0.09 x10^3/uL (0-0.4); EOSINOPHILS % (AUTO) 1 % (1-7); LYMPHOCYTES # (AUTO) 1.62 x10^3/uL (1-3.4); LYMPHOCYTES % (AUTO) 14 % (22-44); MD NO; MEAN CORPUSCULAR HEMOGLOBIN 31.7 pg (27.0-34.8); MEAN CORPUSCULAR VOLUME 96.2 fL (80-100); MEAN PLATELET VOLUME 7.5 fL (7.4-10.4); MONOCYTES # (AUTO) 1.22 x10^3/uL (0.2-0.8); MONOCYTES % (AUTO) 10 % (2-9); NEUTROPHILS # (AUTO) 8.76 x10^3/uL (1.8-6.8); NEUTROPHILS % (AUTO) 74 % (42-75); PLATELET COUNT 341 x10^3/uL (130-400); RED BLOOD COUNT 3.08 x10^6/uL (3.82-5.3)
[2019-06-16 05:42] LABS: ANION GAP 9 mmol/L (5-15); CHLORIDE 106 mmol/L (98-107)
[2019-06-16 05:45] LABS: CREATININE 2.08 mg/dL (0.55-1.02)
[2019-06-16 07:55] VITALS: BP 124/73
[2019-06-16 14:30] VITALS: BP 128/77
[2019-06-16 20:22] VITALS: BP 127/75
[2019-06-17] MEDS: HEPARIN 5,000 UNITS/ML, 1ML SQ SCH ×3 (01:19→17:48)
[2019-06-17] MEDS: ACETAMINOPHEN 325 MG TABLET PO PRN ×2 (01:19→20:57)
[2019-06-17] MEDS: CEFTRIAXONE PMX 1GM/50ML 50 ML IV SCH (01:19)
[2019-06-17 01:40] VITALS: BP 119/68
[2019-06-17 05:47] LABS: BASOPHILS # (AUTO) 0.08 x10^3/uL (0-0.1); BASOPHILS % (AUTO) 1 % (0-1); EOSINOPHILS % (AUTO) 2 % (1-7); LYMPHOCYTES # (AUTO) 1.82 x10^3/uL (1-3.4); LYMPHOCYTES % (AUTO) 18 % (22-44); MD NO; MEAN CORPUSCULAR HEMOGLOBIN 31.3 pg (27.0-34.8); MEAN CORPUSCULAR HGB CONC 32.5 g/dL (32.4-35.8); MEAN CORPUSCULAR VOLUME 96.1 fL (80-100); MEAN PLATELET VOLUME 7.8 fL (7.4-10.4); MONOCYTES # (AUTO) 0.95 x10^3/uL (0.2-0.8); MONOCYTES % (AUTO) 9 % (2-9); NEUTROPHILS # (AUTO) 7.29 x10^3/uL (1.8-6.8); NEUTROPHILS % (AUTO) 71 % (42-75); PLATELET COUNT 360 x10^3/uL (130-400); RED BLOOD COUNT 3.23 x10^6/uL (3.82-5.3); RED CELL DISTRIBUTION WIDTH 13.9 % (9.6-15.2)
[2019-06-17 06:00] LABS: CHLORIDE 104 mmol/L (98-107)
[2019-06-17 06:16] LABS: ANION GAP 9 mmol/L (5-15); CALCIUM 9.4 mg/dL (8.5-10.1); CREATININE 2.06 mg/dL (0.55-1.02)
[2019-06-17 08:57] VITALS: BP 131/78
[2019-06-17] MEDS: POLYETHYLENE GLYCOL 17 GM PACKET NG SCH (11:29)
[2019-06-17 13:19] VITALS: BP 136/78
[2019-06-17 20:34] VITALS: BP 142/83
[2019-06-17] MEDS: CEPHALEXIN 500 MG CAPSULE PO SCH (20:57)
[2019-06-18] MEDS: HEPARIN 5,000 UNITS/ML, 1ML SQ SCH ×3 (01:15→17:39)
[2019-06-18 01:49] VITALS: BP 137/76
[2019-06-18 05:46] LABS: BASOPHILS # (AUTO) 0.08 x10^3/uL (0-0.1); BASOPHILS % (AUTO) 1 % (0-1); EOSINOPHILS # (AUTO) 0.27 x10^3/uL (0-0.4); EOSINOPHILS % (AUTO) 3 % (1-7); LYMPHOCYTES # (AUTO) 1.68 x10^3/uL (1-3.4); LYMPHOCYTES % (AUTO) 19 % (22-44); MD NO; MEAN CORPUSCULAR HEMOGLOBIN 31.4 pg (27.0-34.8); MEAN CORPUSCULAR HGB CONC 32.5 g/dL (32.4-35.8); MEAN CORPUSCULAR VOLUME 96.7 fL (80-100); MEAN PLATELET VOLUME 7.3 fL (7.4-10.4); MONOCYTES # (AUTO) 0.85 x10^3/uL (0.2-0.8); MONOCYTES % (AUTO) 10 % (2-9); NEUTROPHILS % (AUTO) 67 % (42-75); PLATELET COUNT 388 x10^3/uL (130-400); RED BLOOD COUNT 3.38 x10^6/uL (3.82-5.3); RED CELL DISTRIBUTION WIDTH 13.7 % (9.6-15.2)
[2019-06-18 06:04] LABS: CHLORIDE 105 mmol/L (98-107)
[2019-06-18 06:17] LABS: ANION GAP 8 mmol/L (5-15); CALCIUM 9.8 mg/dL (8.5-10.1); CREATININE 1.77 mg/dL (0.55-1.02)
[2019-06-18] MEDS ORDERED: CEPH-376 PO (06:36)
[2019-06-18] MEDS ORDERED: POLY17PO5 PO (06:36)
[2019-06-18] MEDS ORDERED: ACET325T26 PO (06:36)
[2019-06-18] MEDS: POLYETHYLENE GLYCOL 17 GM PACKET NG SCH (08:12)
[2019-06-18] MEDS: CEPHALEXIN 500 MG CAPSULE PO SCH ×2 (08:12→20:03)
[2019-06-18] MEDS ORDERED: BISACODYL 10 MG SUPP PR ONE (08:30)
[2019-06-18 08:38] VITALS: BP 144/81
[2019-06-18] MEDS ORDERED: MAGNESIUM CITRATE 300ML ORAL SOL PO ONE (09:00)
[2019-06-18 14:35] VITALS: BP 145/83
[2019-06-18] MEDS ORDERED: BISACODYL 10 MG SUPP ONE (14:45)
[2019-06-18] MEDS: POLYETHYLENE GLYCOL 17 GM PACKET PO SCH (19:29)
[2019-06-18 20:01] VITALS: BP 144/79
[2019-06-19 00:15] VITALS: BP 156/83
[2019-06-19] MEDS: HEPARIN 5,000 UNITS/ML, 1ML SQ SCH ×2 (01:48→09:05)
[2019-06-19 07:16] VITALS: BP 132/76
[2019-06-19] MEDS: POLYETHYLENE GLYCOL 17 GM PACKET PO SCH (09:00)
[2019-06-19] MEDS: CEPHALEXIN 500 MG CAPSULE PO SCH (09:06)
[2019-06-19] MEDS ORDERED: CEPH-376 PO (10:39)
== END 2019-06-19 11:10 | DRG 872 ==
LOC: ED 06-14 00:53 → EDIP 06-14 01:13 → 3NE 06-14 02:24
PROVIDERS: ADMIT Student in an Organized Health Care Education/Training Program; ATTEND Student in an Organized Health Care Education/Training Program
DX: A41.9 Sepsis, unspecified organism (principal); N18.4 Chronic kidney disease, stage 4 (severe); E44.0 Moderate protein-calorie malnutrition; L89.151 Pressure ulcer of sacral region, stage 1; Z68.24 Body mass index [BMI] 24.0-24.9, adult; E86.0 Dehydration; I12.9 Hypertensive chronic kidney disease with stage 1 through stage 4 chronic kidney disease, or unspecified chronic kidney disease; I25.10 Atherosclerotic heart disease of native coronary artery without angina pectoris; K59.00 Constipation, unspecified; N30.90 Cystitis, unspecified without hematuria; Z82.3 Family history of stroke; Z16.29 Resistance to other single specified antibiotic; Z88.1 Allergy status to other antibiotic agents
CPT/HCPCS: 36415; 71045; 80048; 80053; 81001; 83605; 83735; 83880; 84100; 84145; 84439; 84443; 84484; 85025; 87040; 87077; 87086; 87186; 93005; 96365; 96366; G0378; J0696; J1644; Q0162; J7030; J7120

== ENCOUNTER 2019-07-22 17:21 | Inpatient (IN) | payer MEDICARE ==
[~2019-07-22] VITALS: Ht 162.6 cm; Wt 74.4 kg
[~2019-07-22 17:21] MED LIST changes: +ACET325T26 PO; +CEPH-376 PO
[2019-07-22] MEDS ORDERED: SODIUM CHLORIDE FLUSH 10ML SYR IVF ONE ×2 (17:30→19:00)
--- NOTE | 2019-07-22 17:46 | NUR ---
ERMD IN TO EVAL PT, ORDERS RECIEVED. LABS DRAWN AND CHEST DX COMPLETED
[2019-07-22 18:06] LABS: BASOPHILS # (AUTO) 0.22 x10^3/uL (0-0.1); BASOPHILS % (AUTO) 1 % (0-1); EOSINOPHILS % (AUTO) 0 % (1-7); LYMPHOCYTES # (AUTO) 0.76 x10^3/uL (1-3.4); LYMPHOCYTES % (AUTO) 5 % (22-44); MD NO; MEAN CORPUSCULAR HEMOGLOBIN 30.8 pg (27.0-34.8); MEAN CORPUSCULAR HGB CONC 33.2 g/dL (32.4-35.8); MEAN CORPUSCULAR VOLUME 92.9 fL (80-100); MEAN PLATELET VOLUME 7.3 fL (7.4-10.4); MONOCYTES # (AUTO) 0.68 x10^3/uL (0.2-0.8); MONOCYTES % (AUTO) 5 % (2-9); NEUTROPHILS # (AUTO) 13.67 x10^3/uL (1.8-6.8); NEUTROPHILS % (AUTO) 89 % (42-75); PLATELET COUNT 553 x10^3/uL (130-400); RED BLOOD COUNT 3.84 x10^6/uL (3.82-5.3); RED CELL DISTRIBUTION WIDTH 14.6 % (9.6-15.2)
[2019-07-22 18:14] LABS: ALANINE AMINOTRANSFERASE 39 U/L (12-78); ALBUMIN 2.6 g/dL (3.4-5.0); ANION GAP 10 mmol/L (5-15); CALCIUM 9.8 mg/dL (8.5-10.1); CHLORIDE 91 mmol/L (98-107); CREATININE 3.56 mg/dL (0.55-1.02)
[2019-07-22 18:17] LABS: ALKALINE PHOSPHATASE 142 U/L (45-117); BILIRUBIN,TOTAL 0.4 mg/dL (0.2-1.0); TOTAL PROTEIN 8.5 g/dL (6.4-8.2)
--- NOTE | 2019-07-22 18:20 | NUR ---
PT RETURNED FROM CT. FAMILY NOW AT BEDSIDE.
[2019-07-22] MEDS ORDERED: SODIUM CHLORIDE 0.9% 1,000 ML IV ONE (18:33)
--- NOTE | 2019-07-22 18:37 | NUR ---
UA COLLECTED AND WALKED TO LAB.
[2019-07-22] MEDS ORDERED: CEFTRIAXONE PMX 1GM/50ML 50 ML ONE (18:39)
[2019-07-22 18:54] LABS: CULTURE INDICATED? YES; MICROSCOPIC INDICATED
[2019-07-22] MEDS ORDERED: SODIUM CHLORIDE FLUSH 10ML SYR IVF PRN (19:00)
[2019-07-22] MEDS ORDERED: CEFTRIAXONE PMX 1GM/50ML 50 ML IVPB ONE (19:00)
[2019-07-22] MEDS ORDERED: SODIUM CHLORIDE 0.9% 1,000ML IVBOLUS ONE (19:00)
--- NOTE | 2019-07-22 19:50 | NUR ---
PIV dressing noted to be loose, seeping blood. Dressing removed, line secured and redressed, denies pain, site is asymptomaitc, fluids resumed.
[2019-07-22] MEDS ORDERED: ONDANSETRON 2MG/ML, 2ML IVPush PRN (20:00)
[2019-07-22] MEDS ORDERED: hydrALAzine 20 MG/ML, 1ML IVPush PRN (20:00)
--- NOTE | 2019-07-22 20:08 | NUR ---
Pt stable for transfer to floor, vitals stable, denies pain, NSR at 90-100 bpm pn monitor, IV fluids infusing per orders, reocephin complete. Family at bedside and updated on POC.
--- NOTE | 2019-07-22 20:45 | NUR ---
Report given to Nikole PARISI, pt to transfer to [facility] via staff transport, stable on monitor.
[2019-07-22 21:07] VITALS: BP 122/77
[2019-07-22 22:00] LABS: ANION GAP 10 mmol/L (5-15); CALCIUM 9.1 mg/dL (8.5-10.1); CHLORIDE 97 mmol/L (98-107); CREATININE 3.16 mg/dL (0.55-1.02)
[2019-07-22] MEDS: HEPARIN 5,000 UNITS/ML, 1ML SQ SCH (22:18)
[2019-07-22] MEDS: LACTULOSE 10 GM/15 ML UDC PO SCH (22:19)
[2019-07-22] MEDS: SODIUM CHLORIDE 0.9% 1,000 ML IV SCH (22:19)
[2019-07-22] MEDS: CEFTRIAXONE PMX 1GM/50ML 50 ML IV SCH (22:19)
[2019-07-23 03:56] VITALS: BP 135/64
[2019-07-23 05:09] LABS: MEAN CORPUSCULAR HGB CONC 32.2 g/dL (32.4-35.8); MEAN CORPUSCULAR VOLUME 93.3 fL (80-100); MEAN PLATELET VOLUME 7.7 fL (7.4-10.4); PLATELET COUNT 467 x10^3/uL (130-400); RED BLOOD COUNT 3.42 x10^6/uL (3.82-5.3); RED CELL DISTRIBUTION WIDTH 14.8 % (9.6-15.2)
[2019-07-23 05:12] LABS: ANION GAP 11 mmol/L (5-15); CALCIUM 9.3 mg/dL (8.5-10.1); CHLORIDE 98 mmol/L (98-107); CREATININE 2.88 mg/dL (0.55-1.02)
[2019-07-23 05:49] LABS: BASOPHILS # (AUTO) 0.07 x10^3/uL (0-0.1); BASOPHILS % (AUTO) 1 % (0-1); EOSINOPHILS % (AUTO) 0 % (1-7); LYMPHOCYTES # (AUTO) 0.81 x10^3/uL (1-3.4); LYMPHOCYTES % (AUTO) 6 % (22-44); MD SCAN; MONOCYTES % (AUTO) 8 % (2-9); NEUTROPHILS # (AUTO) 11.49 x10^3/uL (1.8-6.8); NEUTROPHILS % (AUTO) 86 % (42-75)
[2019-07-23] MEDS: HEPARIN 5,000 UNITS/ML, 1ML SQ SCH ×3 (05:53→22:24)
[2019-07-23 08:14] VITALS: BP 119/70
[2019-07-23] MEDS: SODIUM CHLORIDE 0.9% 1,000 ML IV SCH ×2 (09:52→22:24)
[2019-07-23] MEDS: LACTULOSE 10 GM/15 ML UDC PO SCH ×2 (10:37→22:24)
[2019-07-23] MEDS: SENNA/DOCUSATE TABLET PO SCH (10:38)
[2019-07-23 13:40] VITALS: BP 126/72
[2019-07-23 19:48] VITALS: BP 128/69
[2019-07-23] MEDS: CEFTRIAXONE PMX 1GM/50ML 50 ML IV SCH (22:24)
[2019-07-24 01:05] VITALS: BP 119/68
[2019-07-24 06:19] LABS: ANION GAP 9 mmol/L (5-15); CALCIUM 9.1 mg/dL (8.5-10.1); CHLORIDE 101 mmol/L (98-107); CREATININE 2.11 mg/dL (0.55-1.02)
[2019-07-24 06:27] LABS: BASOPHILS # (AUTO) 0.01 x10^3/uL (0-0.1); BASOPHILS % (AUTO) 0 % (0-1); EOSINOPHILS # (AUTO) 0.13 x10^3/uL (0-0.4); EOSINOPHILS % (AUTO) 2 % (1-7); LYMPHOCYTES # (AUTO) 0.69 x10^3/uL (1-3.4); LYMPHOCYTES % (AUTO) 8 % (22-44); MD NO; MEAN CORPUSCULAR HEMOGLOBIN 30.7 pg (27.0-34.8); MEAN CORPUSCULAR HGB CONC 32.9 g/dL (32.4-35.8); MEAN CORPUSCULAR VOLUME 93.3 fL (80-100); MEAN PLATELET VOLUME 6.9 fL (7.4-10.4); MONOCYTES # (AUTO) 0.56 x10^3/uL (0.2-0.8); MONOCYTES % (AUTO) 6 % (2-9); NEUTROPHILS % (AUTO) 85 % (42-75); PLATELET COUNT 450 x10^3/uL (130-400); RED BLOOD COUNT 3.24 x10^6/uL (3.82-5.3); RED CELL DISTRIBUTION WIDTH 14.8 % (9.6-15.2)
[2019-07-24] MEDS: HEPARIN 5,000 UNITS/ML, 1ML SQ SCH ×3 (06:28→23:22)
[2019-07-24 07:35] VITALS: BP 108/70
[2019-07-24] MEDS: SODIUM CHLORIDE 0.9% 1,000 ML IV SCH ×2 (08:24→17:58)
[2019-07-24] MEDS: LACTULOSE 10 GM/15 ML UDC PO SCH ×2 (08:24→20:09)
[2019-07-24] MEDS: SENNA/DOCUSATE TABLET PO SCH (08:24)
[2019-07-24] MEDS: ACETAMINOPHEN 325 MG TABLET PO PRN (08:29)
[2019-07-24 13:12] VITALS: BP 106/71
[2019-07-24] MEDS: ERTAPENEM 500 GM in SODIUM CHLORIDE 0.9% 50 ML IV SCH (13:58)
[2019-07-24] MEDS: GABAPENTIN 100 MG CAPSULE PO SCH ×2 (15:43→20:10)
[2019-07-24 19:10] VITALS: BP 150/72
[2019-07-25 01:24] VITALS: BP 123/72
[2019-07-25] MEDS: SODIUM CHLORIDE 0.9% 1,000 ML IV SCH ×2 (04:19→13:41)
[2019-07-25 05:10] LABS: BASOPHILS # (AUTO) 0.09 x10^3/uL (0-0.1); BASOPHILS % (AUTO) 1 % (0-1); EOSINOPHILS # (AUTO) 0.13 x10^3/uL (0-0.4); EOSINOPHILS % (AUTO) 1 % (1-7); LYMPHOCYTES # (AUTO) 0.98 x10^3/uL (1-3.4); LYMPHOCYTES % (AUTO) 10 % (22-44); MD NO; MEAN CORPUSCULAR HEMOGLOBIN 30.8 pg (27.0-34.8); MEAN CORPUSCULAR VOLUME 93.3 fL (80-100); MEAN PLATELET VOLUME 7.5 fL (7.4-10.4); MONOCYTES % (AUTO) 7 % (2-9); NEUTROPHILS # (AUTO) 7.86 x10^3/uL (1.8-6.8); NEUTROPHILS % (AUTO) 81 % (42-75); PLATELET COUNT 393 x10^3/uL (130-400); RED BLOOD COUNT 2.91 x10^6/uL (3.82-5.3); RED CELL DISTRIBUTION WIDTH 15.1 % (9.6-15.2)
[2019-07-25 05:20] LABS: ANION GAP 8 mmol/L (5-15); CALCIUM 8.5 mg/dL (8.5-10.1); CHLORIDE 105 mmol/L (98-107); CREATININE 1.82 mg/dL (0.55-1.02)
[2019-07-25] MEDS: HEPARIN 5,000 UNITS/ML, 1ML SQ SCH ×2 (06:31→17:43)
[2019-07-25] MEDS: LACTULOSE 10 GM/15 ML UDC PO SCH ×2 (07:58→20:17)
[2019-07-25] MEDS: SENNA/DOCUSATE TABLET PO SCH (07:59)
[2019-07-25 08:23] VITALS: BP 116/71
[2019-07-25 13:40] VITALS: BP 126/81
[2019-07-25] MEDS: ERTAPENEM 500 GM in SODIUM CHLORIDE 0.9% 50 ML IV SCH (13:41)
[2019-07-25] MEDS ORDERED: GABAPENTIN 100 MG CAPSULE PO SCH (16:00)
[2019-07-25 19:36] VITALS: BP 110/68
[2019-07-25] MEDS: GABAPENTIN 300 MG CAPSULE PO SCH (20:18)
[2019-07-26] MEDS: SODIUM CHLORIDE 0.9% 1,000 ML IV SCH ×3 (00:08→21:11)
[2019-07-26 00:10] VITALS: BP 101/61
[2019-07-26] MEDS: HEPARIN 5,000 UNITS/ML, 1ML SQ SCH ×3 (01:36→17:39)
[2019-07-26 07:23] LABS: BASOPHILS % (AUTO) 0 % (0-1); EOSINOPHILS # (AUTO) 0.06 x10^3/uL (0-0.4); EOSINOPHILS % (AUTO) 1 % (1-7); LYMPHOCYTES # (AUTO) 0.89 x10^3/uL (1-3.4); LYMPHOCYTES % (AUTO) 10 % (22-44); MD NO; MEAN CORPUSCULAR HGB CONC 32.5 g/dL (32.4-35.8); MEAN CORPUSCULAR VOLUME 92.2 fL (80-100); MEAN PLATELET VOLUME 6.4 fL (7.4-10.4); MONOCYTES # (AUTO) 0.63 x10^3/uL (0.2-0.8); MONOCYTES % (AUTO) 7 % (2-9); NEUTROPHILS # (AUTO) 7.47 x10^3/uL (1.8-6.8); NEUTROPHILS % (AUTO) 83 % (42-75); PLATELET COUNT 394 x10^3/uL (130-400); RED BLOOD COUNT 3.05 x10^6/uL (3.82-5.3); RED CELL DISTRIBUTION WIDTH 15.5 % (9.6-15.2)
[2019-07-26 07:30] LABS: ALBUMIN 1.8 g/dL (3.4-5.0); ANION GAP 7 mmol/L (5-15); CALCIUM 8.6 mg/dL (8.5-10.1); CHLORIDE 109 mmol/L (98-107); CREATININE 1.81 mg/dL (0.55-1.02)
[2019-07-26 08:06] VITALS: BP 109/67
[2019-07-26] MEDS: SENNA/DOCUSATE TABLET PO SCH (09:00)
[2019-07-26] MEDS: LACTULOSE 10 GM/15 ML UDC PO SCH ×2 (09:00→21:11)
[2019-07-26] MEDS: GABAPENTIN 300 MG CAPSULE PO SCH ×3 (09:06→21:11)
[2019-07-26] MEDS: ACETAMINOPHEN 325 MG TABLET PO PRN (13:38)
[2019-07-26] MEDS: ERTAPENEM 500 GM in SODIUM CHLORIDE 0.9% 50 ML IV SCH (13:38)
[2019-07-26 14:54] VITALS: BP 96/53
[2019-07-26 18:38] VITALS: BP 117/73
[2019-07-27 00:26] VITALS: BP 110/61
[2019-07-27] MEDS: HEPARIN 5,000 UNITS/ML, 1ML SQ SCH ×3 (02:12→17:06)
[2019-07-27 05:27] LABS: MEAN CORPUSCULAR HEMOGLOBIN 30.9 pg (27.0-34.8); MEAN CORPUSCULAR HGB CONC 33.1 g/dL (32.4-35.8); MEAN CORPUSCULAR VOLUME 93.3 fL (80-100); PLATELET COUNT 407 x10^3/uL (130-400); RED BLOOD COUNT 2.76 x10^6/uL (3.82-5.3); RED CELL DISTRIBUTION WIDTH 15.4 % (9.6-15.2)
[2019-07-27 05:36] LABS: ANION GAP 5 mmol/L (5-15); CALCIUM 8.4 mg/dL (8.5-10.1); CHLORIDE 113 mmol/L (98-107)
[2019-07-27] MEDS: SODIUM CHLORIDE 0.9% 1,000 ML IV SCH (06:08)
[2019-07-27 06:13] LABS: MD YES
[2019-07-27 06:15] LABS: BAND#(MANUAL) 0.29 x10^3/uL; BANDS%(MANUAL) 3 % (0-7); BASOS% (MANUAL) 1 % (0-1); EOS% (MANUAL) 1 % (1-7); LYMPH#(MANUAL) 0.49 x10^3/uL (1-3.4); LYMPHS% (MANUAL) 5 % (22-44); MONOS#(MANUAL) 0.59 x10^3/uL (0.3-2.7); MONOS% (MANUAL) 6 % (2-9); SEG#(MANUAL) 8.23 x10^3/uL (1.8-6.8); SEGS% (MANUAL) 84 % (42-75)
[2019-07-27 06:16] LABS: <PLATELET ESTIMATE> INCREASED; <PLT MORPHOLOGY> NORMAL PLT MORPH; ANISOCYTOSIS 1+; POLYCHROMASIA 1+
[2019-07-27 06:49] VITALS: BP 108/66
[2019-07-27] MEDS: LACTULOSE 10 GM/15 ML UDC PO SCH ×2 (09:00→21:32)
[2019-07-27] MEDS: SENNA/DOCUSATE TABLET PO SCH (09:00)
[2019-07-27] MEDS ORDERED: ARTIFICIAL TEARS 15 DROP/ML BOTTLE EACHEYE PRN (09:30)
[2019-07-27] MEDS: GABAPENTIN 300 MG CAPSULE PO SCH ×3 (09:57→21:35)
[2019-07-27 12:05] VITALS: BP 118/71
[2019-07-27] MEDS: ERTAPENEM 500 GM in SODIUM CHLORIDE 0.9% 50 ML IV SCH (13:51)
[2019-07-27 21:16] VITALS: BP 123/70
[2019-07-28 02:15] VITALS: BP 110/65
[2019-07-28] MEDS: HEPARIN 5,000 UNITS/ML, 1ML SQ SCH ×3 (02:46→17:45)
[2019-07-28 05:42] LABS: BASOPHILS # (AUTO) 0.07 x10^3/uL (0-0.1); BASOPHILS % (AUTO) 1 % (0-1); EOSINOPHILS % (AUTO) 1 % (1-7); LYMPHOCYTES # (AUTO) 1.33 x10^3/uL (1-3.4); LYMPHOCYTES % (AUTO) 16 % (22-44); MD NO; MEAN CORPUSCULAR HEMOGLOBIN 31.1 pg (27.0-34.8); MEAN CORPUSCULAR HGB CONC 33.3 g/dL (32.4-35.8); MEAN CORPUSCULAR VOLUME 93.4 fL (80-100); MEAN PLATELET VOLUME 7.1 fL (7.4-10.4); MONOCYTES # (AUTO) 0.58 x10^3/uL (0.2-0.8); MONOCYTES % (AUTO) 7 % (2-9); NEUTROPHILS # (AUTO) 6.02 x10^3/uL (1.8-6.8); NEUTROPHILS % (AUTO) 74 % (42-75); PLATELET COUNT 403 x10^3/uL (130-400); RED BLOOD COUNT 2.68 x10^6/uL (3.82-5.3); RED CELL DISTRIBUTION WIDTH 15.7 % (9.6-15.2)
[2019-07-28 05:50] LABS: ALBUMIN 1.6 g/dL (3.4-5.0); ANION GAP 8 mmol/L (5-15); CALCIUM 8.9 mg/dL (8.5-10.1); CHLORIDE 114 mmol/L (98-107); CREATININE 1.87 mg/dL (0.55-1.02)
[2019-07-28 06:30] VITALS: BP 112/62
[2019-07-28] MEDS: SENNA/DOCUSATE TABLET PO SCH (09:00)
[2019-07-28] MEDS: LACTULOSE 10 GM/15 ML UDC PO SCH ×2 (09:00→21:00)
[2019-07-28] MEDS: GABAPENTIN 300 MG CAPSULE PO SCH ×3 (09:11→21:00)
[2019-07-28 13:23] VITALS: BP 111/69
[2019-07-28] MEDS: ERTAPENEM 0.5 GM in SODIUM CHLORIDE 0.9% 50 ML IV SCH (15:09)
[2019-07-28 19:29] VITALS: BP 107/67
[2019-07-29 02:02] VITALS: BP 105/63
[2019-07-29] MEDS: HEPARIN 5,000 UNITS/ML, 1ML SQ SCH ×3 (02:05→16:40)
[2019-07-29 05:05] LABS: BASOPHILS # (AUTO) 0.01 x10^3/uL (0-0.1); BASOPHILS % (AUTO) 0 % (0-1); EOSINOPHILS % (AUTO) 2 % (1-7); LYMPHOCYTES # (AUTO) 1.47 x10^3/uL (1-3.4); LYMPHOCYTES % (AUTO) 18 % (22-44); MD NO; MEAN CORPUSCULAR HEMOGLOBIN 31.2 pg (27.0-34.8); MEAN CORPUSCULAR HGB CONC 33.4 g/dL (32.4-35.8); MEAN CORPUSCULAR VOLUME 93.3 fL (80-100); MEAN PLATELET VOLUME 6.2 fL (7.4-10.4); MONOCYTES % (AUTO) 7 % (2-9); NEUTROPHILS # (AUTO) 5.84 x10^3/uL (1.8-6.8); NEUTROPHILS % (AUTO) 72 % (42-75); PLATELET COUNT 409 x10^3/uL (130-400); RED BLOOD COUNT 2.69 x10^6/uL (3.82-5.3); RED CELL DISTRIBUTION WIDTH 15.5 % (9.6-15.2)
[2019-07-29 05:17] LABS: ANION GAP 6 mmol/L (5-15); CALCIUM 9.3 mg/dL (8.5-10.1); CHLORIDE 113 mmol/L (98-107); CREATININE 1.77 mg/dL (0.55-1.02)
[2019-07-29 05:22] LABS: PREALBUMIN 8.3 mg/dL (20.0-40.0)
[2019-07-29 06:40] VITALS: BP 112/65
[2019-07-29] MEDS ORDERED: FERROUS SULFATE 325 MG TABLET PO SCH (08:00)
[2019-07-29] MEDS: GABAPENTIN 300 MG CAPSULE PO SCH (10:36)
[2019-07-29] MEDS: LACTULOSE 10 GM/15 ML UDC PO SCH (10:36)
[2019-07-29] MEDS: SENNA/DOCUSATE TABLET PO SCH (10:36)
[2019-07-29 13:02] VITALS: BP 113/71
[2019-07-29] MEDS: ERTAPENEM 0.5 GM in SODIUM CHLORIDE 0.9% 50 ML IV SCH (14:42)
[2019-07-29] MEDS ORDERED: SENN-193 PO (17:05)
[2019-07-29] MEDS ORDERED: LACT10SO5 PO (17:05)
[2019-07-29] MEDS ORDERED: FERR-51 PO (17:05)
[2019-07-29] MEDS ORDERED: GABA300C10 PO (17:05)
== END 2019-07-29 18:26 | DRG 871 ==
LOC: ED 18:28 → EDIP 18:57 → 5SO 21:06 → 4EST 07-23 18:16
PROVIDERS: ADMIT Family Medicine; ATTEND Family Medicine
PROC: 0T9B70Z Drainage of Bladder with Drainage Device, Via Natural or Artificial Opening (ICD-10-PCS; principal; 2019-07-22)
PROC: 02HV33Z Insertion of Infusion Device into Superior Vena Cava, Percutaneous Approach (ICD-10-PCS; 2019-07-28)
PROC: B5181ZA Fluoroscopy of Superior Vena Cava using Low Osmolar Contrast, Guidance (ICD-10-PCS; 2019-07-28)
PROC: B548ZZA Ultrasonography of Superior Vena Cava, Guidance (ICD-10-PCS; 2019-07-28)
DX: A41.89 Other specified sepsis (principal); G93.41 Metabolic encephalopathy; N10 Acute pyelonephritis; E87.1 Hypo-osmolality and hyponatremia; N17.9 Acute kidney failure, unspecified; C16.9 Malignant neoplasm of stomach, unspecified; B96.1 Klebsiella pneumoniae [K. pneumoniae] as the cause of diseases classified elsewhere; E83.52 Hypercalcemia; E86.0 Dehydration; E86.1 Hypovolemia; G89.29 Other chronic pain; M54.9 Dorsalgia, unspecified; I12.9 Hypertensive chronic kidney disease with stage 1 through stage 4 chronic kidney disease, or unspecified chronic kidney disease; Z82.49 Family history of ischemic heart disease and other diseases of the circulatory system; Z88.8 Allergy status to other drugs, medicaments and biological substances; I48.91 Unspecified atrial fibrillation; I73.9 Peripheral vascular disease, unspecified; K59.00 Constipation, unspecified; N18.9 Chronic kidney disease, unspecified; Z66 Do not resuscitate; Z51.5 Encounter for palliative care; Z16.12 Extended spectrum beta lactamase (ESBL) resistance; Z82.3 Family history of stroke; Z91.81 History of falling
CPT/HCPCS: 36415; 36573; 70450; 71045; 76770; 80048; 80053; 81001; 82040; 82306; 82728; 83540; 83550; 83605; 83970; 84134; 85025; 87040; 87077; 87086; 87186; 93005; 96374; G0378; J0696; J1335; J1644; J2405; C1751; J7030